=== PATIENT | male | born 1975 | race Caucasian/White ===

== ENCOUNTER 2016-08-28 08:26 | Outpatient (CLI) | payer OTHER ==
[~2016-08-28 08:26] MED LIST: MULTIVITAMIN1 TAB PO; NORCO1 TA1 PO; SURFAK240 MG PO
--- NOTE | 2016-08-28 10:01 | DIAGNOSTIC IMAGING REPORT ---
PROCEDURE: MR LUMBAR SPINE W/O CONTRAST INDICATION: LUMBAR BACK PAIN TECHNIQUE: Noncontrast T1, T2, and STIR sagittal images. T1 and T2 axial images. COMPARISON: None. FINDINGS: Grade 1 L5-S1 of retrolisthesis with moderate disc space narrowing. Minor spur formation throughout the lumbar spine. There is no fracture. L3 bony hemangioma. Normal conus. Paraspinal soft tissues are unremarkable. L1-2: Normal appearance. L2-3: Normal appearance. L3-4: Normal appearance. L4-5: Minor disc bulge and mild facet arthropathy. No foraminal or spinal stenosis. L5-S1: Moderate central disc herniation abutting the bilateral S1 nerve roots, with mild facet arthropathy. There is mild bilateral foraminal stenosis. No spinal stenosis. IMPRESSION: 1. Moderate L5-S1 central disc herniation abutting the bilateral S1 nerve roots with mild bilateral foraminal stenosis.
== END 2016-08-28 23:00 ==
LOC: MRI SRH 08:26
DX: M51.27 Other intervertebral disc displacement, lumbosacral region (principal)